=== PATIENT | female | born 1980 | race Two or more races ===

== ENCOUNTER 2016-08-17 07:18 | Emergency (ER) | payer BC ==
[~2016-08-17] VITALS: Ht 165.1 cm; Wt 54.4 kg
--- NOTE | 2016-08-17 07:20 | NUR ---
AAOX3, BIB FAMILY C/O HEADACHE SINCE 5AM TODAY. +NAUSEA AND VOMITING. SKIN IS WARM AND DRY. RESP IS EVEN AND UNLABORED WITH NAD NOTED. ASSISTED TO HOSPITAL GOWN. PLACED ON MONITOR. WILL CONTINUOUSLY MONITOR THE PATIENT. AWAITING MD FOR EVAL.
[2016-08-17] MEDS ORDERED: LORAZEPAM INJ 2 MG/ML VIAL ONE (07:34)
--- NOTE | 2016-08-17 07:35 | NUR ---
PT MEDICATED ORDERED.
[2016-08-17] MEDS ORDERED: LORAZEPAM INJ 2 MG/ML VIAL IM ONE (08:00)
--- NOTE | 2016-08-17 08:11 | NUR ---
Patient is resting comfortably in bed with eyes closed. Easily aroused. VSS
--- NOTE | 2016-08-17 08:40 | NUR ---
Pt ambulatory with a steady gait. Patient discharged to home in stable condition. Written and verbal after care instructions given. Patient verbalizes understanding of instruction.
[2016-08-17 08:41] VITALS: BP 130/81
== END 2016-08-17 08:41 | disposition home or self-care (01) ==
LOC: ER 07:22
DX: R51 Headache (principal); F41.9 Anxiety disorder, unspecified
CPT/HCPCS: 96372; 99283; A4606; J2060; Z7610